=== PATIENT | male | born 1945 | race Caucasian/White ===

== ENCOUNTER → 2016-08-03 | Outpatient (CLI) | payer MEDICARE ==
[~2016-08-03] MED LIST: SIMVASTATIN80 MG PO; TRAVATAN 0.0042.5 M1 INTRAOC; VICODIN 5/500 505 M1 PO
== END | disposition home or self-care (01) ==
LOC: CARD 07:55
DX: I07.1 Rheumatic tricuspid insufficiency (principal); R01.1 Cardiac murmur, unspecified